=== PATIENT | male | born 1955 | race Caucasian/White ===

== ENCOUNTER 2024-05-04 22:14 | Emergency (ER) | payer OTHER, BC ==
[2024-05-04 22:30] VITALS: BMI 30.9
[2024-05-04 23:04] LABS: BASO % 0.4 % (0-2.0); EOS % 0.4 % (0-4.5); HEMATOCRIT 43.1 % (35.4-49); HEMOGLOBIN 14.5 GM/dL (11.7-16.9); LYMPH % 6.5 % (8-40); MCH 32.6 pg (25.7-33.7); MCHC 33.6 g/dl (32.0-35.9); MEAN CELL VOLUME 97.2 fl (80-96); MEAN PLT VOLUME 8.8 fl (7.5-11.1); MONO % 5.6 % (3.8-10.2); NEUT % 87.1 % (42.8-82.8); PLATELET COUNT 150 10^3/uL (134-434); RBC 4.43 M/mm3 (4.00-5.60); RDW 14.2 % (11.9-15.9); WHITE BLOOD COUNT 6.8 K/mm3 (4.0-10.0)
[2024-05-04 23:10] LABS: INR 1.25 (0.83-1.09); PROTHROMBIN TIME (PATIENT) 14.3 SEC (9.7-13.0)
[2024-05-04 23:13] LABS: ACTIVATED PTT 32.7 SECONDS (25.2-36.5)
[2024-05-04 23:27] LABS: CALCIUM 8.6 mg/dL (8.5-10.1)
[2024-05-04 23:28] LABS: ALBUMIN 3.5 g/dl (3.4-5.0); BLOOD UREA NITROGEN 13.8 mg/dL (7-18)
[2024-05-04 23:32] LABS: BILIRUBIN,TOTAL 0.7 mg/dL (0.2-1)
[2024-05-04 23:33] LABS: TOT PROT 8.2 g/dl (6.4-8.2)
[2024-05-04 23:37] LABS: VENOUS BASE EXCESS 0.4 mmol/L (-2-2); VENOUS O2 SATURATION 62.5 % (70-80); VENOUS PCO2 37.6 mmHg (38-52); VENOUS PH 7.43 (7.310-7.410)
[2024-05-05] MEDS ORDERED: ACETAMINOPHEN 1000 MG/100 ML BAG IVPB ONE (00:07)
[2024-05-05] MEDS ORDERED: IBUPROFEN 400 MG TABLET (FP) PO ONE (01:07)
[2024-05-05] MEDS: IBUPROFEN 400 MG TABLET (FP) PO ONE (01:13)
[2024-05-05] MEDS: SODIUM CHLORIDE 0.9% 500 ML INFUS.BAG IV ONE (01:30)
[2024-05-05 02:37] VITALS: BP 130/88; PULSE 88; RESP 16; TEMP 98.8
== END 2024-05-05 02:50 | disposition home or self-care (01) ==
LOC: JER 22:14
DX: J10.1 Influenza due to other identified influenza virus with other respiratory manifestations (principal); R05.9 Cough, unspecified; R09.89 Other specified symptoms and signs involving the circulatory and respiratory systems; R50.9 Fever, unspecified; Z20.822 Contact with and (suspected) exposure to COVID-19
CPT/HCPCS: 0241U-QW; 36415; 71045-TC-FY; 80053; 82803; 83605; 84484; 85025; 85610; 85730; 86850; 86900; 86901; 87040; 93005; 93010; 99285-25